=== PATIENT | male | born 1980 | race African-American/Black ===

== ENCOUNTER 2017-09-13 10:42 | Emergency (ER) | payer MEDICAID ==
[~2017-09-13 10:42] MED LIST: AUGM875 PO; BACT2OIN TOP; NAPR550 PO; TRAZ50TA78 PO
[2017-09-13 11:52] VITALS: BP 144/96; PULSE 81; RESP 16; TEMP 99; O2SAT 99
--- NOTE | 2017-09-13 12:43 | RADRPT ---
EXAM DATE/TIME: 09/13/2017 12:24 [facility] COMPARISON: No previous studies available for comparison. INDICATIONS : Chest pain with deep breaths. Short of breath. MEDICAL HISTORY : None. SURGICAL HISTORY : None. ENCOUNTER: Initial ACUITY: 3 days PAIN SCORE: 8/10 LOCATION: Bilateral chest FINDINGS: PA and lateral views of the chest demonstrate the lungs to be symmetrically aerated without evidence of mass, infiltrate or effusion. The cardiomediastinal contours are unremarkable. Osseous structure s are intact. CONCLUSION: No acute cardiopulmonary disease. Yayo Blake MD on September 13, 2017 at 12:41 Board Certified Radiologist. This report was verified electronically.
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
[2017-09-13] MEDS ORDERED: SODIUM CHLOR 0.9% 1000 ML INJ 1,000 ML IV SCH (13:10)
[2017-09-13 13:11] VITALS: O2SAT 99
[2017-09-13] MEDS ORDERED: SODIUM CHLORIDE 0.9% FLUSH 10 ML FLUSH IV FLUSH PRN (13:15)
[2017-09-13] MEDS ORDERED: FAMOTIDINE 20 MG/2 ML VIAL IV PUSH ONE (13:15)
[2017-09-13] MEDS ORDERED: LIDOCAINE VISCOUS 2% SOLN 15 ML UDC PO ONE (13:15)
[2017-09-13] MEDS ORDERED: ONDANSETRON HCL 4 MG/2 ML VIAL IVP ONE (13:15)
[2017-09-13] MEDS ORDERED: ALUMINUM/MAGNESIUM/SIMETH 30 ML CUP PO ONE (13:15)
--- NOTE | 2017-09-13 13:45 | RADRPT ---
EXAM DATE/TIME: 09/13/2017 13:27 [facility] COMPARISON: No previous studies available for comparison. INDICATIONS : Right upper quadrant pain with nausea and vomiting for 2 days. MEDICAL HISTORY : None. SURGICAL HISTORY : None. ENCOUNTER: Initial ACUITY: 2 days PAIN SCORE: 8/10 LOCATION: Right upper quadrant FINDINGS: Supine and upright views of the abdomen were performed. The abdominal bowel gas pattern is normal. No air fluid levels are seen. No calcifications are seen overlying the kidneys. There are calcified phleboliths in the pelvis bilaterally.. The visualized lower lungs are clear. No evidence of free i ntraperitoneal gas. The osseous structures are unremarkable. The lung bases are clear. CONCLUSION: Benign abdomen. Sundar Jordan MD on September 13, 2017 at 13:42 Board Certified Radiologist. This report was verified electronically.
[2017-09-13 13:49] LABS: AUTOMATED NEUTROPHIL # 5.7 TH/MM3 (1.8-7.7); BASOPHIL % 0.5 % (0.0-2.0); EOSINOPHIL % 0.4 % (0.0-4.0); HEMOGLOBIN 15.4 GM/DL (13.0-17.0); LYMPHOCYTE # 1.5 TH/MM3 (1.0-4.8); MEAN CELL VOLUME 83.2 FL (80.0-100.0); MEAN CORPUSCULAR HEMOGLOBIN 28.5 PG (27.0-34.0); MEAN CORPUSCULAR HGB CONC 34.2 % (32.0-36.0); MEAN PLATELET VOLUME 8.9 FL (7.0-11.0); MONO % 8.3 % (0.0-8.0); MONOCYTE # 0.7 TH/MM3 (0-0.9); NEUT % 71.8 % (16.0-70.0); PLATELET COUNT 192 TH/MM3 (150-450); RED BLOOD COUNT 5.41 MIL/MM3 (4.50-5.90); RED CELL DISTRIBUTION WIDTH 13.9 % (11.6-17.2)
[2017-09-13 14:10] LABS: ALKALINE PHOSPHATASE 76 U/L (45-117); ALT (GPT) 57 U/L (12-78)
[2017-09-13 14:11] LABS: ALBUMIN 4.4 GM/DL (3.4-5.0); AST (GOT) 42 U/L (15-37); BLOOD UREA NITROGEN 8 MG/DL (7-18); CALCIUM 9.6 MG/DL (8.5-10.1); CHLORIDE 98 MEQ/L (98-107); GLOMERULAR FILTRATION RATE 102 ML/MIN (>89); GLUCOSE,RANDOM 71 MG/DL (74-106); SODIUM (NA) 135 MEQ/L (136-145)
[2017-09-13 15:46] LABS: BILIRUBIN, URINE NEG (NEG); BLOOD, URINE SMALL (NEG); GLUCOSE,URINE NEG (NEG); KETONE, URINE 40 mg/dL (NEG); NITRITE,URINE NEG (NEG); PH, URINE 5.5 (5.0-8.5); URINE COLOR YELLOW (YELLW/STRAW); URINE LEUKOCYTE ESTERASE NEG (NEG)
[2017-09-13 15:48] LABS: ACETAMINOPHEN LESS THAN 2.0 MCG/ML (10.0-30.0)
[2017-09-13 19:16] VITALS: BP 133/97; PULSE 72; RESP 18; O2SAT 97
[2017-09-13] MEDS ORDERED: hydrOXYzine HCL 50 MG/ML VIAL IM ONE (23:15)
[2017-09-13 23:41] VITALS: BP 137/96; PULSE 71; RESP 20
[2017-09-14] MEDS ORDERED: DIVA250ER PO (00:28)
[2017-09-14 06:31] VITALS: BP 134/66; PULSE 65; RESP 17
--- NOTE | 2017-09-14 08:59 | PD ---
Physical Exam Time Seen by Provider: 08:57 Narrative LINDSEY Sibley has evaluated patient and cleared patient for discharge. The patient is being provided follow-up at [facility]. Data Data Last Documented VS Vital Signs Date Time Temp Pulse Resp B/P (MAP) Pulse Ox O2 Delivery O2 Flow Rate FiO2 09/14/17 06:31 65 17 134/66 (88) Room Air 09/13/17 19:16 97 09/13/17 11:52 99.0 Orders Orders Complete Blood Count With Diff (09/13/17 12:14) Comprehensive Metabolic Panel (09/13/17 12:14) Lipase (09/13/17 12:14) Chest, Pa & Lat (09/13/17 ) Urinalysis - C+S If Indicated (09/13/17 13:10) Abdomen, Flat & Upright (09/13/17 ) Iv Access Insert/Monitor (09/13/17 13:10) Ecg Monitoring (09/13/17 13:10) Oximetry (09/13/17 13:10) Ondansetron Inj (Zofran Inj) (09/13/17 13:15) Sodium Chlor 0.9% 1000 Ml Inj (Ns 1000 M (09/13/17 13:10) Sodium Chloride 0.9% Flush (Ns Flush) (09/13/17 13:15) Electrocardiogram (09/13/17 13:10) Famotidine Inj (Pepcid Inj) (09/13/17 13:15) Al-Mag Hy-Si 40-40-4 Mg/Ml Liq (Mag-Al P (09/13/17 13:15) Lidocaine 2% Viscous (Xylocaine 2% Visco (09/13/17 13:15) Valproic Acid (Depakene) (09/13/17 14:18) Psych Screen (09/13/17 14:18) Drug Screen, Random Urine (09/13/17 14:18) Alcohol (Ethanol) (09/13/17 14:18) Salicylates (Aspirin) (09/13/17 14:18) Tylenol (Acetaminophen) (09/13/17 14:18) Hydroxyzine Hcl Inj (Vistaril Inj) (09/13/17 23:15) Diet Regular Basic (09/14/17 Breakfast) Labs Laboratory Tests Test 09/13/17 13:02 09/13/17 14:41 White Blood Count 8.0 TH/MM3 Red Blood Count 5.41 MIL/MM3 Hemoglobin 15.4 GM/DL Hematocrit 45.0 % Mean Corpuscular Volume 83.2 FL Mean Corpuscular Hemoglobin 28.5 PG Mean Corpuscular Hemoglobin Concent 34.2 % Red Cell Distribution Width 13.9 % Platelet Count 192 TH/MM3 Mean Platelet Volume 8.9 FL Neutrophils (%) (Auto) 71.8 % Lymphocytes (%) (Auto) 19.0 % Monocytes (%) (Auto) 8.3 % Eosinophils (%) (Auto) 0.4 % Basophils (%) (Auto) 0.5 % Neutrophils # (Auto) 5.7 TH/MM3 Lymphocytes # (Auto) 1.5 TH/MM3 Monocytes # (Auto) 0.7 TH/MM3 Eosinophils # (Auto) 0.0 TH/MM3 Basophils # (Auto) 0.0 TH/MM3 CBC Comment DIFF FINAL Differential Comment Blood Urea Nitrogen 8 MG/DL Creatinine 1.00 MG/DL Random Glucose 71 MG/DL Total Protein 8.0 GM/DL Albumin 4.4 GM/DL Calcium Level 9.6 MG/DL Alkaline Phosphatase 76 U/L Aspartate Amino Transf (AST/SGOT) 42 U/L Alanine Aminotransferase (ALT/SGPT) 57 U/L Total Bilirubin 1.0 MG/DL Sodium Level 135 MEQ/L Potassium Level 4.2 MEQ/L Chloride Level 98 MEQ/L Carbon Dioxide Level 25.0 MEQ/L Anion Gap 12 MEQ/L Estimat Glomerular Filtration Rate 102 ML/MIN Lipase 146 U/L Urine Color YELLOW Urine Turbidity CLEAR Urine pH 5.5 Urine Specific [place] 1.016 Urine Protein NEG mg/dL Urine Glucose (UA) NEG mg/dL Urine Ketones 40 mg/dL Urine Occult Blood SMALL Urine Nitrite NEG Urine Bilirubin NEG Urine Urobilinogen LESS THAN 2.0 MG/DL Urine Leukocyte Esterase NEG Urine RBC 8 /hpf Urine WBC 2 /hpf Microscopic Urinalysis Comment CULT NOT INDICATED Salicylates Level 2.2 MG/DL Urine Opiates Screen NEG Acetaminophen Level LESS THAN 2.0 MCG/ML Urine Barbiturates Screen NEG Valproic Acid (Depakene) Level LESS THAN 3 MCG/ML Urine Amphetamines Screen NEG Urine Benzodiazepines Screen NEG Urine Cocaine Screen POS Urine Cannabinoids Screen NEG Ethyl Alcohol Level LESS THAN 3 MG/DL [facility] Supervised Visit with GERMAN: No Narrative Course LINDSEY Sibley has evaluated patient and cleared patient for discharge. The patient is being provided follow-up at [facility]. Patient contracts safety. Denies suicidal or homicidal ideations. Patient will be provided community resource packet to /J[facility] for follow-up. Has friends and family for support. Patient was medically cleared by alternate provider prior to psych screening. Patient has been evaluated by psychiatry and and is now cleared for discharge. Diagnosis Primary Impression: Adjustment disorder Qualified Codes: F43.20 - Adjustment disorder, unspecified Referrals: [facility] (Out patient) [facility] Primary Care Physician Psychiatrist [facility] Patient Instructions: General Instructions, Mood Disorders (ED) Additional Instruction: Contract safety to your self and others Follow-up with psychiatry Follow-up with primary care provider Follow-up with [facility] Return to the emergency department immediately with worsening of symptoms Med/Other Pt SpecificInfo: No Change to Meds, No Meds Exist/No RX given Disposition: 01 DISCHARGE HOME Condition: Stable April Sands Sep 14, 2017 08:59
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
--- NOTE | 2017-09-14 20:55 | EKG ---
Date Performed: 09/13/2017 Time Performed: 12:57:33 PTAGE: 37 years EKG: SINUS BRADYCARDIA VOLTAGE CRITERIA FOR LVH ABNORMAL ECG PREVIOUS TRACING : 03/28/2008 22.27 Since the previous tracing, no significant change noted DOCTOR: Kayode Back Interpretating Date/Time 09/14/2017 20:53:45
== END 2017-09-14 10:11 | disposition home or self-care (01) ==
LOC: NED 10:42 → NEPJ 09-14 10:11
DX: F43.20 Adjustment disorder, unspecified (principal); F17.200 Nicotine dependence, unspecified, uncomplicated; F14.90 Cocaine use, unspecified, uncomplicated; Z79.899 Other long term (current) drug therapy
CPT/HCPCS: 71046; 74019; 80053; 80164; 80307; 81001; 83690; 85025; 93005; 96372; 96374; 96375; 99284; J2405; J3410; J7030